=== PATIENT | female | born 1970 | race African-American/Black ===

== ENCOUNTER 2017-02-13 21:46 | Emergency (ER) | payer BC ==
[~2017-02-13] VITALS: Ht 177.8 cm; Wt 61.2 kg
--- NOTE | ~2017-02-13 | EKG ---
[address] [place] [address] ELECTROCARDIOGRAM REPORT Name: QUINTIN SALDANA Room #: [id number] Admission: 02/13/17 Attend Phys: Discharge: 02/14/17 Date of : 66 Report #: [id number] THIS REPORT FOR: //name// [facility] ED Test Date: 2017-02-13 Test Time: 22:24:18 Pat Name: QUINTIN SALDANA Department: Room: Gender: F [employer]: KEY : 1970 Requested By: Leyda Campoverde Order Number: [id number] MD: Leonid Vasquez Measurements Intervals [place] Rate: 69 P: 75 TN: 154 QRS: 19 QRSD: 146 T: 9 QT: 412 QTc: 442 Interpretive Statements Sinus rhythm Probable left ventricular hypertrophy No previous ECG available for comparison Electronically Signed On 02-17-2017 12:47:16 CDT by Leonid Vasquez [email or web address] <ELECTRONICALLY SIGNED> By: Leonid Vasquez MD 02/17/17 1247 2224 2224 Leonid Vasquez MD /MERLY
[~2017-02-13 21:46] MED LIST: CYCLOBENZAPRINE5 MG PO; NORCO 5-325 TA1 EACH PO
[2017-02-13 22:03] LABS: URINE BILIRUBIN 1+ (Negative); URINE BLOOD NEGATIVE (Negative); URINE COLOR YELLOW; URINE GLUCOSE-RANDOM* NEGATIVE (Negative); URINE KETONES 1+ (Negative); URINE LEUKOCYTES-REFLEX NEGATIVE (Negative); URINE PROTEIN (DIPSTICK) 1+ (Negative); URINE SPECIFIC GRAVITY 1.015 (1.003-1.035)
[2017-02-13 22:07] LABS: ICTOTEST (BILI CONFIRMATORY) Negative (Negative)
[2017-02-13 22:17] LABS: SQUAMOUS 0-3 Few /LPF (0-3)
[2017-02-13 22:18] LABS: CASTS None Seen /LPF (None Seen); CRYSTALS None Seen /LPF (None Seen); URINE RBC None Seen /HPF (0-2); URINE WBC-REFLEX 0-5 Rare /HPF (0-5)
[2017-02-13 22:29] LABS: ABSOLUTE NEUTROPHILS 7.8 thou/uL (1.4-8.2); BASOPHILS 0.6 % (0.0-2.0); EOSINOPHILS 0.7 % (0.0-3.0); HEMATOCRIT 41.5 % (37.0-47.0); HEMOGLOBIN 14.8 gm/dL (12.0-15.0); MCH 32.4 pg (26.0-34.0); MCHC 35.6 g/dL (28.0-37.0); MCV 91.2 fL (80.0-100.0); MONOCYTES 5.3 % (1.0-8.0); PLATELET COUNT 256 thou/uL (150-400); POLYS 76.4 % (36.0-66.0); RBC 4.55 mil/uL (4.20-5.00); RDW 14.5 % (10.5-14.5); WBC 10.3 thou/uL (4.0-11.0)
[2017-02-13 22:40] LABS: MANUAL DIFF NO
[2017-02-13 23:14] LABS: ANION GAP 11 mmol/L (7-16); BUN 11 mg/dL (7-18); CALCIUM 9.7 mg/dL (8.5-10.1); CHLORIDE 101 mmol/L (98-107); CO2 27 mmol/L (21-32); CREATININE 0.7 mg/dL (0.6-1.3); GLUCOSE 132 mg/dL (70-99); POTASSIUM 3.6 mmol/L (3.5-5.1); SODIUM 139 mmol/L (136-145)
[2017-02-13 23:25] LABS: ALBUMIN 4.2 g/dL (3.4-5.0); ALKALINE PHOSPHATASE 109 U/L (46-116); SGOT 12 U/L (15-37); SGPT 11 U/L (30-65); TOTAL BILIRUBIN 0.7 mg/dL (<0.1-1.0); TROPONIN-I < 0.04 ng/mL (<0.04-0.07)
[2017-02-13] MEDS ORDERED: PHENERGAN 25 MG25 M1 PO (23:38)
[2017-02-13] MEDS ORDERED: ZANTAC 150MG T150 MG PO (23:38)
[2017-02-14 00:25] VITALS: BP 124/86
== END 2017-02-14 00:26 | disposition home or self-care (01) ==
LOC: ER 21:46
PROVIDERS: Physician Assistant
DX: R10.13 Epigastric pain (principal); R11.0 Nausea

== ENCOUNTER 2018-11-27 12:59 | Emergency (ER) | payer BC ==
[~2018-11-27] VITALS: Ht 175.3 cm; Wt 62.6 kg
[~2018-11-27 12:59] MED LIST changes: +PHENERGAN 25 MG25 M1 PO; +ZANTAC 150MG T150 MG PO
[2018-11-27] MEDS ORDERED: OSELB75 PO (15:22)
[2018-11-27] MEDS ORDERED: ONDANSETRON HCL4 M2 PO (16:14)
[2018-11-27] MEDS ORDERED: NORCO 5-325 TA1 EACH PO (16:14)
[2018-11-27 16:31] VITALS: BP 128/59
== END 2018-11-27 16:02 | disposition home or self-care (01) ==
LOC: ER 12:59
DX: J11.1 Influenza due to unidentified influenza virus with other respiratory manifestations (principal)